=== PATIENT | female | born 1955 | race Caucasian/White ===

== ENCOUNTER 2018-04-18 13:04 | Emergency (ER) | payer MEDICAID ==
[2018-04-18] MEDS: KETOROLAC 30 MG INJ IM (14:20)
== END 2018-04-18 14:59 | disposition home or self-care (01) ==
LOC: FTE 13:04
DX: M54.41 Lumbago with sciatica, right side (principal)
CPT/HCPCS: 96372; 99284-25; J1885

== ENCOUNTER 2018-11-26 21:33 | Emergency (ER) | payer MEDICAID ==
[2018-11-27] MEDS: KETOROLAC 30 MG INJ IM (00:36)
== END 2018-11-27 02:02 | disposition home or self-care (01) ==
LOC: FTE 21:33
DX: R51 Headache (principal)
CPT/HCPCS: 96372; 99284-25

== ENCOUNTER 2019-02-14 18:49 | Emergency (ER) | payer MEDICAID, OTHER ==
[2019-02-15] MEDS: KETOROLAC 15 MG INJ IM (00:59)
== END 2019-02-15 01:07 | disposition home or self-care (01) ==
LOC: FTE 18:49
DX: R51 Headache (principal); M25.50 Pain in unspecified joint
CPT/HCPCS: 96372; 99284-25

== ENCOUNTER 2019-07-27 01:49 | Emergency (ER) | payer MEDICAID ==
[2019-07-27 03:26] LABS: URINE PH (Dip) POC 6.5 (5.0-8.5)
[2019-07-27 03:26] LABS: URINE BLOOD (Dip) POC Trace-lysed (NEGATIVE); URINE GLUCOSE (Dip) POC Negative (NEGATIVE); URINE KETONES (Dip) POC Negative (NEGATIVE); URINE LEUKOCYTE EST (Dip) POC Negative (NEGATIVE); URINE NITRITE (Dip) POC Negative (NEGATIVE); URINE TOTAL PROTEIN POC Negative (NEGATIVE)
[2019-07-27] MEDS: KETOROLAC 30 MG INJ IM (03:33)
== END 2019-07-27 04:27 | disposition home or self-care (01) ==
LOC: E/R 01:49
DX: R51 Headache (principal)
CPT/HCPCS: 81003; 96372; 99284-25